=== PATIENT | female | born 1940 | race Asian ===

== ENCOUNTER → 2017-04-17 | Outpatient (CLI) | payer MEDICARE ==
[2017-04-17 13:52] LABS: INTERNATIONAL NORMALIZED RATIO 4.6 RATIO; PROTHROMBIN TIME - PATIENT 53.9 SEC (9.8-11.6)
== END ==
LOC: CLAB 13:17
DX: I48.2 Chronic atrial fibrillation (principal)
CPT/HCPCS: 36415; 85610

== ENCOUNTER → 2017-06-07 | Outpatient (CLI) | payer MEDICARE ==
[2017-06-07 14:04] LABS: PROTHROMBIN TIME - PATIENT 34.7 SEC (9.8-11.6)
== END ==
LOC: CLAB 13:34
DX: I48.2 Chronic atrial fibrillation (principal)
CPT/HCPCS: 36415; 85610